=== PATIENT | female | born 1980 | race Caucasian/White ===

== ENCOUNTER 2018-11-02 16:59 | Emergency (ER) | payer SELFPAY ==
[~2018-11-02] VITALS: Ht 152.4 cm; Wt 72.6 kg
[2018-11-02 17:16] VITALS: Ht 152.4 cm; Wt 72.6 kg
[2018-11-02] MEDS ORDERED: ATARAX 25 MG TA25 MG PO (17:18)
[2018-11-02] MEDS ORDERED: CELEXA20 MG PO (17:19)
[2018-11-02 19:07] LABS: UDS - AMPHET NEGATIVE QUAL (NEGATIVE); UDS - BARB NEGATIVE QUAL (NEGATIVE); UDS - BENZO NEGATIVE QUAL (NEGATIVE); UDS - COCAINE NEGATIVE QUAL (NEGATIVE); UDS - OPIATE NEGATIVE QUAL (NEGATIVE); UDS - PCP NEGATIVE QUAL (NEGATIVE); UDS - THC NEGATIVE QUAL (NEGATIVE)
[2018-11-02 19:48] VITALS: BP 135/92
== END 2018-11-02 19:48 | disposition home or self-care (01) ==
LOC: D.ER 16:59
PROVIDERS: Family Medicine
DX: S00.81XA Abrasion of other part of head, initial encounter (principal); W20.8XXA Other cause of strike by thrown, projected or falling object, initial encounter; Y93.89 Activity, other specified; Y92.89 Other specified places as the place of occurrence of the external cause